=== PATIENT | male | born 1975 | race Caucasian/White ===

== ENCOUNTER 2017-02-21 09:31 | Inpatient (IN) | payer BC ==
[2017-02-21] VITALS (7 sets, daily range): BP systolic 126–143; BP diastolic 65–91; PULSE 68–80; RESP 16–20; TEMP 98.2–98.6; O2SAT 98–100
[~2017-02-21] VITALS: Ht 182.9 cm; Wt 147.5 kg
[~2017-02-21 09:31] MED LIST: GLIP5TAB8 PO; HYDR-3534 PO; IBUP-232 PO; METO25TA3 PO; PRED-503 PO; TRAM50TA PO; URSO1TAB5 PO
--- NOTE | 2017-02-21 10:00 | PD ---
HPI Chief Complaint: Abnormal Results Time Seen by Provider: 09:58 Travel History International Travel<30 days: No Contact w/Intl Traveler<30days: No Traveled to known affect area: No History of Present Illness HPI 41-year-old male came to the emergency room with history of dizziness that started 36 hours ago. Patient says that he first noticed it at 2 AM Sunday when he tried to get out of the bed and got intense nausea sensation. He was unable to walk a straight line was bumping off the manuel. Eventually when he didn't make it to the restroom he had a large bowel movement after which symptoms sort of went away. It came back again yesterday and pretty much stayed the same. He again got nauseous. This morning when he woke up he still had the symptoms when he decided to come to the emergency room. As it feels like the room is spinning. No history of headache or syncopal episodes. Vital signs were relatively stable. Patient has history of diabetes. Patient says this has never happened to him before. No history of tinnitus or hearing loss. Patient says that it seemed like he was leaning to the right side every time he felt like he was going to fall. His bedside blood glucose was 101. PFSH Past Medical History Narrative Medical List of his past medical, surgical, social and family history was reviewed from the nursing note. Asthma: No Cancer: No High Cholesterol: No Chest Pain: Yes (TRIED COCAINE IN 2013 AND CAUSED CP) Congestive Heart Failure: No Diabetes: Yes Endocrine: Yes Gout: Yes Genitourinary: No Hypertension: Yes Immune Disorder: No Musculoskeletal: Yes (gout) Neurologic: No Integumentary: Yes (eczema) Sleep Apnea: Yes (C-PAP MACHINE) Thyroid Disease: No Past Surgical History Abdominal Surgery: No Appendectomy: Yes Cardiac Surgery: No Ear Surgery: No Endocrine Surgery: No Eye Surgery: No Genitourinary Surgery: No Gynecologic Surgery: No Hysterectomy: Yes (HTN) Oral Surgery: No Thoracic Surgery: No Other Surgery: Yes (GALLBLADDER REMOVAL 2002) Social History Alcohol Use: Yes (occasionally) Tobacco Use: No Substance Use: Yes (MJ) Allergies-Medications (Allergen,Severity, Reaction): Coded Allergies: acetaminophen (Unverified Allergy, Intermediate, Hives, 02/21/17) hydrocodone (Unverified Allergy, Intermediate, Hives, 02/21/17) Comments List of his allergies reviewed from the nursing note. Reported Meds & Prescriptions Reported Meds & Active Scripts Active Reported Tramadol (Tramadol HCl) 50 Mg Tab 50 Mg PO Q6H PRN Ursodiol 250 Mg Tab Unknown Dose PO BID Metoprolol Tartrate 25 Mg Tab 25 Mg PO BID Glipizide 5 Mg Tab 5 Mg PO BIDAC Take 30 minutes before a meal Narrative Medication List of his home medications reviewed from the nursing note. Review of Systems Except as stated in HPI: all other systems reviewed are Neg Physical Exam Narrative GENERAL: Awake, alert, morbidly obese, anxious SKIN: Focused skin assessment warm/dry. HEAD: Atraumatic. Normocephalic. EYES: Pupils equal and round. No scleral icterus. No injection or drainage. ENT: No nasal bleeding or discharge. Mucous membranes pink and moist. NECK: Trachea midline. No JVD. CARDIOVASCULAR: Regular rate and rhythm. No murmur appreciated. RESPIRATORY: No accessory muscle use. Clear to auscultation. Breath sounds equal bilaterally. GASTROINTESTINAL: Abdomen soft, non-tender, nondistended. Hepatic and splenic margins not palpable. MUSCULOSKELETAL: No obvious deformities. No clubbing. No cyanosis. No edema. NEUROLOGICAL: Awake and alert. No obvious cranial nerve deficits. Motor grossly within normal limits. Normal speech. Right upper and lower extremity slight ataxia. Diminished sensation on the right side of the face, right upper extremity and right lower extremity. PSYCHIATRIC: Appropriate mood and affect; insight and judgment normal. Data Data Last Documented VS Vital Signs Date Time Temp Pulse Resp B/P (MAP) Pulse Ox O2 Delivery O2 Flow Rate FiO2 02/21/17 11:19 70 16 140/65 (90) 99 Room Air 02/21/17 09:45 98.2 Orders Orders Electrocardiogram (02/21/17 10:19) Prothrombin Time / Inr (Pt) (02/21/17 10:19) Complete Blood Count With Diff (02/21/17 10:19) Comprehensive Metabolic Panel (02/21/17 10:19) Creatine Kinase (Cpk) (02/21/17 10:19) Troponin I (02/21/17 10:19) Urinalysis - C+S If Indicated (02/21/17 10:19) Ct Brain W/O Iv Contrast(Rout) (02/21/17 10:19) Chest, Single Ap (02/21/17 10:19) Ecg Monitoring (02/21/17 10:19) Iv Access Insert/Monitor (02/21/17 10:19) Oximetry (02/21/17 10:19) Sodium Chloride 0.9% Flush (Ns Flush) (02/21/17 10:30) Mra Brain W/O Contrast (Cow) (02/21/17 ) Aspirin (Aspirin) (02/21/17 11:00) Sodium Chlor 0.9% 1000 Ml Inj (Ns 1000 M (02/21/17 11:15) Mri Brain W/O Contrast (02/21/17 ) Consult Neurology (02/21/17 ) Admit Order (Ed Use Only) (02/21/17 12:59) Labs Laboratory Tests Test 02/21/17 10:31 02/21/17 11:12 White Blood Count 9.1 TH/MM3 Red Blood Count 4.32 MIL/MM3 Hemoglobin 12.8 GM/DL Hematocrit 39.0 % Mean Corpuscular Volume 90.2 FL Mean Corpuscular Hemoglobin 29.6 PG Mean Corpuscular Hemoglobin Concent 32.8 % Red Cell Distribution Width 14.3 % Platelet Count 355 TH/MM3 Mean Platelet Volume 8.5 FL Neutrophils (%) (Auto) 75.3 % Lymphocytes (%) (Auto) 16.6 % Monocytes (%) (Auto) 7.3 % Eosinophils (%) (Auto) 0.2 % Basophils (%) (Auto) 0.6 % Neutrophils # (Auto) 6.8 TH/MM3 Lymphocytes # (Auto) 1.5 TH/MM3 Monocytes # (Auto) 0.7 TH/MM3 Eosinophils # (Auto) 0.0 TH/MM3 Basophils # (Auto) 0.1 TH/MM3 CBC Comment DIFF FINAL Differential Comment Prothrombin Time 10.6 SEC Prothromb Time International Ratio 1.0 RATIO Blood Urea Nitrogen 29 MG/DL Creatinine 1.70 MG/DL Random Glucose 102 MG/DL Total Protein 8.2 GM/DL Albumin 3.5 GM/DL Calcium Level 9.0 MG/DL Alkaline Phosphatase 84 U/L Aspartate Amino Transf (AST/SGOT) 44 U/L Alanine Aminotransferase (ALT/SGPT) 56 U/L Total Bilirubin 0.4 MG/DL Sodium Level 137 MEQ/L Potassium Level 3.8 MEQ/L Chloride Level 104 MEQ/L Carbon Dioxide Level 22.1 MEQ/L Anion Gap 11 MEQ/L Estimat Glomerular Filtration Rate 44 ML/MIN Hemoglobin A1c 6.4 % Total Creatine Kinase 94 U/L Troponin I LESS THAN 0.02 NG/ML Urine Collection Type CATH Urine Color YELLOW Urine Turbidity CLEAR Urine pH 5.5 Urine Specific [place] 1.015 Urine Protein NEG mg/dL Urine Glucose (UA) NEG mg/dL Urine Ketones NEG mg/dL Urine Occult Blood NEG Urine Nitrite NEG Urine Bilirubin NEG Urine Leukocyte Esterase NEG Urine WBC 0-2 /hpf Microscopic Urinalysis Comment CULT NOT INDICATED MDM Medical Decision Making Medical Screen Exam Complete: Yes Emergency Medical Condition: Yes Medical Record Reviewed: Yes Interpretation(s) Twelve-lead EKG was reviewed by me. Normal sinus rhythm, normal axis, nonspecific ST-T wave changes. Heart rate of 69 bpm Differential Diagnosis CVA, intracranial tumor, intracranial hemorrhage Narrative Course 12:47 PM blood test results are back and patient has some renal insufficiency. CAT scan was within normal limit. I have ordered an MRI and MRA looking for a stroke. I discussed the case with Dr. Hong who agreed with the MRI/MRA but he wants the patient to be admitted given the symptoms and the risk factor even if the MRI is negative. He will consult on the patient. Patient was given 1 full strength aspirin. Patient has gone over for his MRI and I'm currently waiting for the hospitalist to call back. Procedures EKG Prior to Arrival: No Diagnosis Primary Impression: CVA (cerebral vascular accident) Qualified Codes: I63.9 - Cerebral infarction, unspecified Additional Impression: Dizziness Admitting Information Admitting Physician Requests: Observation Lidia Donnelly MD Feb 21, 2017 10:00
[2017-02-21] MEDS ORDERED: SODIUM CHLORIDE 0.9% FLUSH 10 ML FLUSH IVF PRN (10:30)
[2017-02-21 10:46] LABS: AUTOMATED NEUTROPHIL # 6.8 TH/MM3 (1.8-7.7); BASOPHIL # 0.1 TH/MM3 (0-0.2); BASOPHIL % 0.6 % (0.0-2.0); EOSINOPHIL % 0.2 % (0.0-4.0); HEMO FLAGS DIFF FINAL; LYMPH % 16.6 % (9.0-44.0); LYMPHOCYTE # 1.5 TH/MM3 (1.0-4.8); MEAN CELL VOLUME 90.2 FL (80.0-100.0); MEAN CORPUSCULAR HEMOGLOBIN 29.6 PG (27.0-34.0); MEAN CORPUSCULAR HGB CONC 32.8 % (32.0-36.0); MONO % 7.3 % (0.0-8.0); NEUT % 75.3 % (16.0-70.0); PLATELET COUNT 355 TH/MM3 (150-450); RED BLOOD COUNT 4.32 MIL/MM3 (4.50-5.90); RED CELL DISTRIBUTION WIDTH 14.3 % (11.6-17.2); WHITE BLOOD COUNT 9.1 TH/MM3 (4.0-11.0)
--- NOTE | 2017-02-21 10:54 | RADRPT ---
EXAM DATE/TIME: 02/21/2017 10:46 [facility] COMPARISON: No previous studies available for comparison. INDICATIONS : Dizziness. Evaluate for cerebrovascular accident. RADIATION DOSE: 63.91 CTDIvol (mGy) MEDICAL HISTORY : Hypertension. Diabetes mellitus type 2. SURGICAL HISTORY : CABG Cholecystectomy. ENCOUNTER: Initial ACUITY: 2 days PAIN SCALE: 0/10 LOCATION: cranial TECHNIQUE: Multiple contiguous axial images were obtained of the head. Using automated exposure control and adj ustment of the mA and/or kV according to patient size, radiation dose was kept as low as reasonably a chievable to obtain optimal diagnostic quality images. DICOM format image data is available electro nically for review and comparison. FINDINGS: CEREBRUM: The ventricles are normal for age. No evidence of midline shift, mass lesion, hemorrhage or acute in farction. No extra-axial fluid collections are seen. POSTERIOR FOSSA: The cerebellum and brainstem are intact. The 4th ventricle is midline. The cerebellopontine angle i s unremarkable. EXTRACRANIAL: The visualized portion of the orbits is intact. SKULL: The calvaria is intact. No evidence of skull fracture. CONCLUSION: Negative for an acute process. Efrem Stein MD FACR on February 21, 2017 at 10:52 Board Certified Radiologist. This report was verified electronically.
[2017-02-21 10:55] LABS: CHLORIDE 104 MEQ/L (98-107); POTASSIUM 3.8 MEQ/L (3.5-5.1); SODIUM (NA) 137 MEQ/L (136-145)
[2017-02-21 10:58] LABS: PROTHROMBIN TIME - PATIENT 10.6 SEC (9.8-11.6)
[2017-02-21 10:59] LABS: ANION GAP 11 MEQ/L (5-15); BICARBONATE 22.1 MEQ/L (21.0-32.0); BLOOD UREA NITROGEN 29 MG/DL (7-18)
[2017-02-21] MEDS ORDERED: ASPIRIN 325 MG TAB PO ONE (11:00)
[2017-02-21 11:02] LABS: ALT (GPT) 56 U/L (12-78); AST (GOT) 44 U/L (15-37); GLOMERULAR FILTRATION RATE 44 ML/MIN (>89)
[2017-02-21 11:04] LABS: TOTAL BILIRUBIN ADULT 0.4 MG/DL (0.2-1.0)
[2017-02-21 11:05] LABS: ALKALINE PHOSPHATASE 84 U/L (45-117); CREATINE KINASE 94 U/L (39-308)
[2017-02-21] MEDS ORDERED: SODIUM CHLOR 0.9% 1000 ML INJ 1,000 ML IV ONE (11:15)
[2017-02-21 11:20] LABS: BLOOD, URINE NEG (NEG); GLUCOSE,URINE NEG (NEG); KETONE, URINE NEG (NEG); NITRITE,URINE NEG (NEG); PH, URINE 5.5 (5.0-8.5)
--- NOTE | 2017-02-21 11:21 | RADRPT ---
EXAM DATE/TIME: 02/21/2017 10:51 [facility] COMPARISON: No previous studies available for comparison. INDICATIONS : Chest pain,dizziness, nausea, high white blood cell count on recent lab work. MEDICAL HISTORY : Hypertension. Gout. Sleep apnea. Diabetes. SURGICAL HISTORY : CABG. Appendectomy. Cholecystectomy. ENCOUNTER: Initial ACUITY: 2 days PAIN SCORE: 4/10 LOCATION: chest FINDINGS: A single view of the chest demonstrates the lungs to be symmetrically aerated without evidence of mas s, infiltrate or effusion. The cardiomediastinal contours are unremarkable. Osseous structures are intact. CONCLUSION: No acute disease. Efrem Stein MD FACR on February 21, 2017 at 11:19 Board Certified Radiologist. This report was verified electronically.
[2017-02-21 11:32] LABS: METHOD OF COLLECTION CATH; URINE COLOR YELLOW (YELLW/STRAW)
[2017-02-21 11:33] LABS: COMMENT (UR) CULT NOT INDICATED; CULTURE IF INDICATED CULT NOT INDICATED; WBC, URINE 0-2 /hpf (0-5)
--- NOTE | 2017-02-21 13:31 | RADRPT ---
EXAM DATE/TIME: 02/21/2017 12:44 [facility] COMPARISON: MRI BRAIN W/O CONTRAST, February 21, 2017, 12:44. INDICATIONS : CVA. Dizziness & Nausea MEDICAL HISTORY : Hypertension. Diabetes mellitus type 2. SURGICAL HISTORY : Cholecystectomy. ENCOUNTER: Initial ACUITY: 1 day PAIN SCORE: 0/10 LOCATION: cranial Please note a normal MRA of the brain does not entirely exclude the possibility of a small aneurysm, nor the possibility of distal intracranial vessel disease. TECHNIQUE: 3D time of flight MRA was performed. Source images, multiplanar STS MIP, and 3D volume MIP reconstru ctions were reviewed. FINDINGS: The left A1 and left P1 segments are hypoplastic. There appears to be fairly severe concentric focal stenosis involving the anterior genu region of the cavernous carotid on the right. There is no eviden ce of major vessel occlusion. No aneurysm or vascular malformation is identified. 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 Eric Looney MD on February 21, 2017 at 13:26 Board Certified Radiologist. This report was verified electronically.
--- NOTE | 2017-02-21 13:37 | RADRPT ---
EXAM DATE/TIME: 02/21/2017 12:44 [facility] COMPARISON: No previous studies available for comparison. INDICATIONS : CVA. Unsteady gait. MEDICAL HISTORY : Hypertension. Diabetes mellitus type 2. SURGICAL HISTORY : Cholecystectomy. ENCOUNTER: Initial ACUITY: 2 day PAIN SCORE: 0/10 LOCATION: head TECHNIQUE: Multiplanar, multisequence MRI of the brain was performed without contrast. FINDINGS: CEREBRUM: The ventricles are normal for age. No evidence of midline shift, mass lesion, hemorrhage or acute in farction. No extraaxial fluid collections are seen. The pituitary gland and suprasellar cistern are normal in configuration. WHITE MATTER: No significant signal abnormalities are seen in the white matter. POSTERIOR FOSSA: The cerebellum and brainstem are intact. The 4th ventricle is midline. The cerebellopontine angle is unremarkable. The cerebellar tonsils are normal in position. DIFFUSION IMAGING: No focal areas of restricted diffusion are seen. No evidence of acute infarction. EXTRACRANIAL: The visualized portions of the orbits and paranasal sinuses are unremarkable. CONCLUSION: Normal examination. Eric Looney MD on February 21, 2017 at 13:34 Board Certified Radiologist. This report was verified electronically.
[2017-02-21] MEDS ORDERED: SENNOSIDES 8.6 MG TAB PO PRN (14:30)
[2017-02-21] MEDS ORDERED: MAGNESIUM HYDROXIDE SUSP 30 ML CUP PO PRN (14:30)
[2017-02-21] MEDS ORDERED: BISACODYL 10 MG SUPP RECTAL PRN (14:30)
[2017-02-21] MEDS ORDERED: NALOXONE HCL 0.4 MG/ML AMP IV PRN (14:30)
[2017-02-21] MEDS ORDERED: SODIUM CHLORIDE 0.9% FLUSH 10 ML FLUSH IV FLUSH PRN (14:30)
[2017-02-21] MEDS ORDERED: LACTULOSE SYRUP 20 GM/30 ML CUP PO PRN (14:30)
[2017-02-21] MEDS ORDERED: DEXTROSE 50% IN WATER 50 ML VIAL(D50) IV PRN (15:15)
[2017-02-21] MEDS ORDERED: GLUCAGON 1 MG/ML VIAL OTHER PRN ×2 (15:15→20:30)
--- NOTE | 2017-02-21 15:40 | HHI.HP ---
[facility] No Primary Care Physician Admission Diagnosis dizziness, CVA Diagnoses: (1) Dizziness Diagnosis: Principal Chief Complaint: Nauseous and dizzy Travel History International Travel<30 Days: No Contact w/Intl Traveler <30 Da: No Traveled to Known Affected Are: No History of Present Illness Written by Daryn Gaytan, acting as scribe for Dr. Apple on 02/21/17 at 15: 39. 41-year-old male with known history of hypertension, hyperlipidemia, diabetes, gout presented to hospital because of nausea and dizziness. Patient states that his symptoms started 3 days ago when he woke up Sunday morning at 2:30 AM really nauseous but he did not vomit. He states again on Sunday early a.m. he did the same thing. Then this morning at 8 AM when he got out of bed he was nauseous but did not vomit. When he got out of bed he got lightheaded and dizzy and he stumbled and ran into the door on the left and then he went to go to the restroom and he staggered to the right eye couple times and then fell onto the toilet. The patient states that he has two-year history of blurred vision, he has had headaches but that was last week on Sunday and Sunday. However he has not had any cephalgia since then. Eyes any paresthesia numbness, strength changes. He describes the dizziness as the room spinning. He did have a bowel movement today which was diarrhea. Patient indicates that his primary medical doctor is located in [facility]. He had labwork done 2 weeks ago and he was called and notified that he had an elevated white count, decreased vitamin D level and elevated cholesterol level. 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 Patient indicates that he has had 2 previous admissions within the last year 1 was because of elevated white blood cell count back in January 08, 2016 and another one in April because of elevated white count and gout. Is indicated by ER documentation the patient was referred here because of abnormal laboratory studies which would include elevated WBC count, however his laboratory studies were normal here. Patient did have workup done emergency department to include CT scan of the head because of the dizziness which was normal. Emergency room physician did contact neurologist who recommended MRI/ MRA of the brain for further evaluation which was also negative. Patient was adequately recommended admission for further neurological evaluation and management. Review of Systems Constitutional: COMPLAINS OF: Dizziness Gastrointestinal: COMPLAINS OF: Nausea Except as stated in HPI: all other systems reviewed are Neg Past Family Social History Past Medical History Hypertension Hyperlipidemia Diabetes Gout Obstructive sleep apnea Past Surgical History Cholecystectomy Reported Medications Benicar HCT 40/25 one tablet daily Carvedilol 25 mg daily Allopurinol 300 mg daily Metformin 500 mg daily Allergies: Coded Allergies: acetaminophen (Unverified Allergy, Intermediate, Hives, 02/21/17) hydrocodone (Unverified Allergy, Intermediate, Hives, 02/21/17) Family History Reviewed is significant for mother is alive with arthritis and significant family history of diabetes. Father at age 71 from end-stage kidney disease, father with hypertension, diabetes Social History That patient denies any tobacco use. Does smoke marijuana occasionally. Does drink alcohol occasionally Physical Exam Vital Signs Vital Signs Date Time Temp Pulse Resp B/P (MAP) Pulse Ox O2 Delivery O2 Flow Rate FiO2 02/21/17 15:00 98.5 68 20 143/81 (101) 99 02/21/17 14:59 02/21/17 13:32 99 Room Air 02/21/17 13:32 70 16 140/90 (107) 100 Room Air 02/21/17 11:19 70 16 140/65 (90) 99 Room Air 02/21/17 11:19 98 Room Air 02/21/17 10:43 100 Room Air 02/21/17 10:10 16 99 Room Air 02/21/17 09:45 98.2 69 16 126/74 (91) 99 Physical Exam GENERAL: Well-developed, well-nourished, in no acute distress. alert and orientated HEENT: Head is normocephalic without any lesions or masses noted. Facial features are symmetric. Eyes: Pupils equal round reactive to light. Extraocular muscles are intact. Conjunctivae were clear. Oropharyngeal: Pharynx without any erythema edema. Tongue is midline without deviation. Buccal mucosa is moist without any masses or lesions NECK: Supple without any masses. Trachea midline no deviation. No JVD, no bruits are appreciated CARDIAC: Regular rhythm, regular rate. S1/S2 are heard. No murmurs gallops or rubs. LUNGS: Clear to auscultation bilaterally. No wheeze, rhonchi or rales. No use of accessory muscles on inspiration or expiration. ABDOMEN: Soft, nontender. Nondistended. Bowel sounds heard in all 4 quadrants. No organomegaly or masses. Negative rebound, negative guarding EXTREMITIES: No edema, pulses are equal bilaterally. No cyanosis or clubbing NEUROLOGY: Mood and affect appear appropriate. Cranial nerves II through XII grossly intact. Muscle strength 5/5 in upper and lower extremities bilaterally. Deep tendon reflexes are 2+ in upper and lower extremities bilaterally. When patient turns his head to the left he gets dizzy Laboratory Laboratory Tests Test 02/21/17 10:31 02/21/17 11:12 White Blood Count 9.1 Red Blood Count 4.32 Hemoglobin 12.8 Hematocrit 39.0 Mean Corpuscular Volume 90.2 Mean Corpuscular Hemoglobin 29.6 Mean Corpuscular Hemoglobin Concent 32.8 Red Cell Distribution Width 14.3 Platelet Count 355 Mean Platelet Volume 8.5 Neutrophils (%) (Auto) 75.3 Lymphocytes (%) (Auto) 16.6 Monocytes (%) (Auto) 7.3 Eosinophils (%) (Auto) 0.2 Basophils (%) (Auto) 0.6 Neutrophils # (Auto) 6.8 Lymphocytes # (Auto) 1.5 Monocytes # (Auto) 0.7 Eosinophils # (Auto) 0.0 Basophils # (Auto) 0.1 CBC Comment DIFF FINAL Differential Comment Prothrombin Time 10.6 Prothromb Time International Ratio 1.0 Blood Urea Nitrogen 29 Creatinine 1.70 Random Glucose 102 Total Protein 8.2 Albumin 3.5 Calcium Level 9.0 Alkaline Phosphatase 84 Aspartate Amino Transf (AST/SGOT) 44 Alanine Aminotransferase (ALT/SGPT) 56 Total Bilirubin 0.4 Sodium Level 137 Potassium Level 3.8 Chloride Level 104 Carbon Dioxide Level 22.1 Anion Gap 11 Estimat Glomerular Filtration Rate 44 Total Creatine Kinase 94 Troponin I LESS THAN 0.02 Urine Collection Type CATH Urine Color YELLOW Urine Turbidity CLEAR Urine pH 5.5 Urine Specific [place] 1.015 Urine Protein NEG Urine Glucose (UA) NEG Urine Ketones NEG Urine Occult Blood NEG Urine Nitrite NEG Urine Bilirubin NEG Urine Leukocyte Esterase NEG Urine WBC 0-2 Microscopic Urinalysis Comment CULT NOT INDICATED Result Diagram: 02/21/17 1031 02/21/17 1031 Imaging Last Impressions Head CT 02/21/17 1019 Signed Impressions: Service Date/Time: Tuesday, February 21, 2017 10:46 - CONCLUSION: Negative for an acute process. Efrem Stein MD FACR Chest X-Ray 02/21/17 1019 Signed Impressions: Service Date/Time: Tuesday, February 21, 2017 10:51 - CONCLUSION: No acute disease. 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 Eric Looney MD Brain MRI 02/21/17 0000 Signed Impressions: Service Date/Time: Tuesday, February 21, 2017 12:44 - CONCLUSION: Normal examination. Eric Looney MD Caprini VTE Risk Assessment Caprini VTE Risk Assessment: Mod/High Risk (score >= 2) Caprini Risk Assessment Model Point Value = 1 Point Value = 2 Point Value = 3 Point Value = 5 Age 41-60 Minor surgery BMI > 25 kg/m2 Swollen legs Varicose veins or History of unexplained or recurrent spontaneous Oral contraceptives or hormone replacement Sepsis (< 1 month) Serious lung disease, including pneumonia (< 1 month) Abnormal pulmonary function Acute myocardial infarction Congestive heart failure (< 1 month) History of inflammatory bowel disease Medical patient at bed rest Age 61-74 Arthroscopic surgery Major open surgery (> 45 min) Laparoscopic surgery (> 45 min) Malignancy Confined to bed (> 72 hours) Immobilizing plaster cast Central venous access Age >= 75 History of VTE Family history of VTE Factor V Leiden Prothrombin [id number] Lupus anticoagulant Anticardiolipin antibodies Elevated serum homocysteine Heparin-induced thrombocytopenia Other congenital or acquired thrombophilia Stroke (< 1 month) Elective arthroplasty Hip, pelvis, or leg fracture Acute spinal cord injury (< 1 month) Prophylaxis Regimen Total Risk Factor Score Risk Level Prophylaxis Regimen 0-1 Low Early ambulation 2 Moderate Order ONE of the following: *Sequential Compression Device (SCD) *Heparin 5000 units SQ BID 3-4 Higher Order ONE of the following medications: *Heparin 5000 units SQ TID *Enoxaparin/Lovenox 40 mg SQ daily (WT < 150 kg, CrCl > 30 mL/min) *Enoxaparin/Lovenox 30 mg SQ daily (WT < 150 kg, CrCl > 10-29 mL/min) *Enoxaparin/Lovenox 30 mg SQ BID (WT < 150 kg, CrCl > 30 mL/min) AND/OR *Sequential Compression Device (SCD) 5 or more Highest Order ONE of the following medications: *Heparin 5000 units SQ TID (Preferred with Epidurals) *Enoxaparin/Lovenox 40 mg SQ daily (WT < 150 kg, CrCl > 30 mL/min) *Enoxaparin/Lovenox 30 mg SQ daily (WT < 150 kg, CrCl > 10-29 mL/min) *Enoxaparin/Lovenox 30 mg SQ BID (WT < 150 kg, CrCl > 30 mL/min) AND *Sequential Compression Device (SCD) Assessment and Plan Problem List: (1) Dizziness ICD Code: R42 - Dizziness and giddiness Status: Acute Plan: 41-year-old male who presented to hospital because three-day history of nausea and dizziness. Likely this is related to postural vertigo -CT scan was done of the head which did not indicate any acute abnormality -MRI of the brain was performed which did not indicate any acute abnormality -MRA of the brain show significant cavernous carotid stenosis on the right -Carotid ultrasound, echocardiogram has been requested -Cardiology consulted for recommendations -Physical therapy consulted for evaluation and Yo maneuver -Patient was given aspirin 325 mg in the emergency department -Neurology consulted for recommendations (2) Hypertension ICD Code: I10 - Essential (primary) hypertension Plan: Will resume patient's home medications when appropriate (3) Diabetes ICD Code: E11.9 - Type 2 diabetes mellitus without complications Plan: Accu-Cheks with sliding scale insulin Assessment and Plan DVT prevention -Subcutaneous Lovenox Physician Certification 2 Midnight Certification Type: Admission for Inpatient Services Order for Inpatient Services The services are ordered in accordance with Medicare regulations or non- Medicare payer requirements, as applicable. In the case of services not specified as inpatient-only, they are appropriately provided as inpatient services in accordance with the 2-midnight benchmark. Estimated LOS (days): 2 days is the estimated time the patient will need to remain in the hospital, assuming treatment plan goals are met and no additional complications. Post-Hospital Plan: Not yet determined Medical Decision Making Impression and Plan This note was transcribed by chetna spivey I, Dr. Mary Apple personally performed the history, physical exam, and medical decision making; and confirmed the accuracy of the information in the transcribed note. Authenticated by Dr. Mary Apple on 02/21/17 at 15:40. Medical Decision Making Impression and Plan This note was transcribed by chetna spivey I, Dr. Mary Apple personally performed the history, physical exam, and medical decision making; and confirmed the accuracy of the information in the transcribed note. This patient's symptoms are most consistent with positional vertigo. We'll follow up carotid ultrasound and discuss with neurology Continue evaluation as above. We'll follow renal function in a.m. Authenticated by Dr. Mary Apple on 02/21/17 at 15:40. Daryn Gaytan Feb 21, 2017 15:40 Mary Apple MD Feb 21, 2017 15:40
[2017-02-21] MEDS ORDERED: SODIUM CHLOR 0.9% 1000 ML INJ 1,000 ML IV SCH ×2 (15:45→20:29)
--- NOTE | 2017-02-21 15:59 | RADRPT ---
EXAM DATE/TIME: 02/21/2017 14:58 [place] COMPARISON: No previous studies available for comparison. INDICATIONS : Cerebrovascular accident. MEDICAL HISTORY : Hypertension. Diabetes. Gout. SURGICAL HISTORY : CABG. Appendectomy. Cholecystectomy. ENCOUNTER: Initial ACUITY: 1 day PAIN SCORE: 0/10 LOCATION: Bilateral neck PEAK SYSTOLIC VELOCITIES (cm/sec): ICA/CCA RATIO: Right: 0.9 Left: 0.7 ICA: Right: 100 Left: 84 CCA: Right: 110 Left: 124 ECA: Right: 118 Left: 73 VERTEBRAL: Right: 52 antegrade Left: 73 antegrade Elevated flow velocities and ICA/CCA ratios have been found to correlate with increased degrees of vessel stenosis, calculated as percentage of diameter relative to a normal segment of distal ICA/CCA FINDINGS: RIGHT CAROTID: There is no evidence for a hemodynamically significant carotid stenosis. Minimal int imal hyperplasia is present with scattered calcific plaque. LEFT CAROTID: There is no evidence for a hemodynamically significant carotid stenosis. Minimal inti mal hyperplasia is present with scattered calcific plaque. VERTEBRAL ARTERIES: Flow is antegrade in both vertebral arteries. MISCELLANEOUS: There are no ancillary masses or adenopathy. CONCLUSION: Negative examination for a hemodynamically significant carotid stenosis. Efrem Stein MD FACR Board Certified Radiologist. This report was verified electronically.
[2017-02-21] MEDS ORDERED: glipiZIDE 5 MG TAB PO SCH (16:00)
[2017-02-21] MEDS: ENOXAPARIN SODIUM 40 MG/0.4 ML SYRINGE SQ SCH (17:12)
[2017-02-21] MEDS: ASPIRIN EC 325 MG TABEC PO SCH (20:30)
[2017-02-21] MEDS ORDERED: DEXTROSE 50% IN WATER 50 ML VIAL(D50) IV PUSH PRN (20:30)
[2017-02-21] MEDS: CLOPIDOGREL 75 MG TAB PO SCH (20:30)
[2017-02-21] MEDS ORDERED: SODIUM CHLORIDE 0.9% FLUSH 5 ML FLUSH IV FLUSH PRN (20:30)
[2017-02-21] MEDS: SODIUM CHLORIDE 0.9% FLUSH 5 ML FLUSH IV FLUSH SCH (21:00)
[2017-02-21] MEDS: INSULIN ASPART SUPPLEMENTAL SCALE SQ SCH (21:00)
[2017-02-21] MEDS: DOCUSATE SODIUM 50 MG/SENNA 8.6 MG TAB PO SCH (21:00)
[2017-02-21] MEDS ORDERED: SODIUM CHLORIDE 0.9% FLUSH 10 ML FLUSH IV FLUSH SCH (21:00)
[2017-02-22] VITALS (9 sets, daily range): BP systolic 123–165; BP diastolic 59–89; PULSE 71–88; RESP 18–20; TEMP 97–98.7; O2SAT 94–98
[2017-02-22 06:39] LABS: POTASSIUM 3.8 MEQ/L (3.5-5.1)
[2017-02-22 06:46] LABS: BICARBONATE 26.6 MEQ/L (21.0-32.0)
[2017-02-22] MEDS: INSULIN ASPART SUPPLEMENTAL SCALE SQ SCH ×4 (06:52→20:31)
--- NOTE | 2017-02-22 07:34 | MB ---
cc: DOTTY GARZA M.D. DATE OF CONSULTATION 02/21/2017 REASON FOR CONSULTATION Possible TIA, vertigo. HISTORY OF PRESENT ILLNESS Mr. Gilbert is a very nice 41-year-old man who since early Sunday morning has been having episodes of vertigo and unsteadiness. This can come and go intermittently. It was not necessarily associated with positio or change in position. Today he had a recurrent episode and came to the ER. He noted difficulty controlling the right arm and right leg. No speech change. He is much better at the present time. He had some headaches as well over the past few days which is somewhat atypical. PAST MEDICAL HISTORY 1. He has got a history of gout. 2. History of appendectomy. 3. Hypertension 4. Sleep apnea using the C-PAP machine. 5. History of eczema. 6. Diabetes MEDICATIONS AT HOME He takes: 1. Aspirin two 81 mg daily 2. Tramadol 3. Ursodiol 4. Metoprolol 5. Glipizide. ALLERGIES ACETAMINOPHEN, HYDROCODONE NEUROLOGIC EXAMINATION VITAL SIGNS: Blood pressure 143/81, pulse is 68, temperature 98.5 degrees. Higher cortical functions normal. Cranial nerves are intact. The extraocular movements are normal. There is no nystagmus. The pupils are equal and reactive. On motor examination, he has 5/5 strength of all groups in both upper and lower extremities. He does [id number] well. There is no dysmetria. He can do [id number] testing well bilaterally. No ataxia. Reflexes are symmetric. MRI of the brain is normal. MRA of the brain shows significant cavernous carotid stenosis on the right side. A carotid ultrasound is normal. CT brain normal. LABORATORY DATA White count is 9100, hemoglobin 12.8, hematocrit 39% platelets. 355,000, PT 10.6, INR 1. Sodium is 137, potassium 3.8, chloride 104, CO2 22.1, the BUN is 29, creatinine 1.7, GFR is 44, AST 44, ALT is 56. IMPRESSION I believe this was most likely a cerebellar TIA which is now resolved. The concern is the dysmetria and ataxia he had on the right side which would indicate more of a TIA as opposed to positional vertigo. He does have evidence of atherosclerotic disease intracranially on the MRA and does have risk factors including diabetes. RECOMMENDATIONS Start Plavix 75 mg daily. Stop the aspirin in three to five days, check an echocardiogram. We will monitor cardiac telemetry to rule out A. Fib. Because of his relative young age, consider NATHANIEL and also recommend evaluation for hypercoagulable state. We will check a lipid panel as well. MD BOB Julian/SHAKA /8:25 PM /7:25 AM
[2017-02-22] MEDS: SODIUM CHLORIDE 0.9% FLUSH 5 ML FLUSH IV FLUSH SCH ×4 (09:00→20:37)
[2017-02-22] MEDS: DOCUSATE SODIUM 50 MG/SENNA 8.6 MG TAB PO SCH ×2 (09:00→20:29)
[2017-02-22] MEDS: CLOPIDOGREL 75 MG TAB PO SCH (09:41)
[2017-02-22] MEDS: CARVEDILOL 12.5 MG TAB PO SCH (09:41)
[2017-02-22] MEDS: ASPIRIN EC 325 MG TABEC PO SCH (09:41)
--- NOTE | 2017-02-22 10:01 | HHI.PR ---
Subjective Remarks Patient seen and evaluated today in follow-up for dizziness. NATHANIEL planned her neuro/cardiology. Patient reports improvement in symptoms today Objective Vitals Vital Signs Date Time Temp Pulse Resp B/P (MAP) Pulse Ox O2 Delivery O2 Flow Rate FiO2 02/22/17 08:00 97.0 71 20 123/81 (95) 98 02/22/17 04:00 97.0 74 20 136/84 (101) 97 02/22/17 00:00 98.0 88 20 140/89 (106) 98 02/21/17 22:31 98 21 02/21/17 20:00 98.6 80 20 143/91 (108) 98 02/21/17 15:00 98.5 68 20 143/81 (101) 99 02/21/17 14:59 02/21/17 13:32 99 Room Air 02/21/17 13:32 70 16 140/90 (107) 100 Room Air 02/21/17 11:19 70 16 140/65 (90) 99 Room Air 02/21/17 11:19 98 Room Air 02/21/17 10:43 100 Room Air 02/21/17 10:10 16 99 Room Air I/O 02/21/17 02/21/17 02/21/17 02/22/17 02/22/17 02/22/17 07:00 15:00 23:00 07:00 15:00 23:00 Intake Total 1000 ml 980 ml 720 ml Balance 1000 ml 980 ml 720 ml Intake Oral 780 ml 720 ml IV Total 1000 ml 200 ml # Voids 4 3 # Bowel Movements 1 0 Result Diagram: 02/21/17 1031 02/22/17 0535 Imaging Last Impressions Head CT 02/21/17 1019 Signed Impressions: Service Date/Time: Tuesday, February 21, 2017 10:46 - CONCLUSION: Negative for an acute process. Efrem Stein MD FACR Chest X-Ray 02/21/17 1019 Signed Impressions: Service Date/Time: Tuesday, February 21, 2017 10:51 - CONCLUSION: No acute disease. 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 Eric Looney MD Carotid Artery Ultrasound 02/21/17 0000 Signed Impressions: Service Date/Time: Tuesday, February 21, 2017 14:58 - CONCLUSION: Negative examination for a hemodynamically significant carotid stenosis. Efrem Stein MD Brain MRI 02/21/17 0000 Signed Impressions: Service Date/Time: Tuesday, February 21, 2017 12:44 - CONCLUSION: Normal examination. Eric Looney MD Objective Remarks Morbidly obese GENERAL: This is a well-nourished, well-developed patient, in no apparent distress. CARDIOVASCULAR: Regular rate and rhythm without murmurs, gallops, or rubs. RESPIRATORY: Clear to auscultation. Breath sounds equal bilaterally. No wheezes , rales, or rhonchi. GASTROINTESTINAL: Abdomen soft, non-tender, nondistended. Normal active bowel sounds MUSCULOSKELETAL: Extremities without clubbing, cyanosis, or edema. NEURO: Alert & Oriented x4 to person, place, time, situation. Moves all ext x4 A/P Problem List: (1) Dizziness ICD Code: R42 - Dizziness and giddiness Status: Acute Plan: Rule out cerebellar TIA with dysmetria and ataxia versus vertigo Workup in progress Neurological consult appreciated TTE and NATHANIEL pending Transferred to [facility] for NATHANIEL Plavix, aspirin Lifestyle adjustment for weight loss and continue treatment for diabetes and hypertension High intensity statin (2) Hypertension ICD Code: I10 - Essential (primary) hypertension Plan: Coreg (3) Diabetes ICD Code: E11.9 - Type 2 diabetes mellitus without complications Plan: Accu-Cheks with sliding scale insulin Home metformin held (4) CAMILLE (acute kidney injury) ICD Code: N17.9 - Acute kidney failure, unspecified Plan: Improved after IV hydration Continue glucose control and follow May need JONATHAN inhibitor Discharge Planning Pending NATHANIEL/Echo Transferred to [facility] hospital Mary Apple MD Feb 22, 2017 10:01
[2017-02-22] MEDS: ENOXAPARIN SODIUM 40 MG/0.4 ML SYRINGE SQ SCH (16:00)
--- NOTE | 2017-02-22 16:20 | ECHRPT ---
Indication: HTN H Disease CONCLUSIONS Normal left ventricular size. Mild concentric left ventricular hypertrophy. The left ventricular systolic function is low normal with an estimated ejection fraction in the rang e of 50- 55%. Ljnwz-mg-vsdg mitral valve regurgitation. No mitral valve stenosis. BP: / HR: Rhythm: MEASUREMENTS (Male / Female) Normal Values Technical Quality:Good 2D ECHO LV Diastolic Diameter PLAX 4.0 cm 4.2 - 5.9 / 3.9 - 5.3 cm LV Systolic Diameter PLAX 2.9 cm IVS Diastolic Thickness 1.3 cm 0.6 - 1.0 / 0.6 - 0.9 cm LVPW Diastolic Thickness 1.1 cm 0.6 - 1.0 / 0.6 - 0.9 cm LV Relative Wall Thickness 0.6 RV Internal Dim ED PLAX 3.9 cm M-MODE Aortic Root Diameter MM 3.1 cm LA Systolic Diameter MM 5.4 cm LA Ao Ratio MM 1.7 AV Cusp Separation MM 1.9 cm DOPPLER Mitral E Point Velocity 71.1 cm/s Mitral A Point Velocity 79.5 cm/s Mitral E to A Ratio 0.9 LV E' Lateral Velocity 9.8 cm/s Mitral E to LV E' Lateral Ratio 7.2 LV E' Septal Velocity 9.6 cm/s Mitral E to LV E' Septal Ratio 7.4 TR Peak Velocity 255.0 cm/s TR Peak Gradient 26.0 mmHg FINDINGS LEFT VENTRICLE Normal left ventricular size. Mild concentric left ventricular hypertrophy. The left ventricular systolic function is low normal with an estimated ejection fraction in the rang e of 50- 55%. RIGHT VENTRICLE Normal right ventricular size and systolic function. LEFT ATRIUM The left atrial size is normal. RIGHT ATRIUM The right atrial size is normal. ATRIAL SEPTUM Normal atrial septal thickness without atrial level shunting by limited color doppler interrogation. AORTA The aortic root and proximal ascending aorta are normal in size on limited imaging. MITRAL VALVE Structurally normal mitral valve. Ojtvb-iu-leho mitral valve regurgitation. No mitral valve stenosis. AORTIC VALVE Trileaflet aortic valve. No aortic valve stenosis or regurgitation. TRICUSPID VALVE Structurally normal tricuspid valve. The estimated pulmonary arterial pressure is36 __ mmHg. PULMONARY VALVE The pulmonary valve is not well visualized. VESSELS The inferior vena cava is normal in size. PERICARDIUM No pericardial effusion. Wilbert Guadalupe MD, FACC (Electronically Signed) Final Date:22 February 2017 16:19
[2017-02-22 17:03] LABS: HEMOGLOBIN A1a 0.9 %; HEMOGLOBIN A1b 1.2 %; HEMOGLOBIN Ao 85.2 %; HEMOGLOBIN F 0.8 %; HEMOGLOBIN LA1C 1.3 %; HEMOGLOBIN P3 3.5 %
--- NOTE | 2017-02-22 17:40 | EKG ---
Date Performed: 02/21/2017 Time Performed: 10:24:38 PTAGE: 41 years EKG: Sinus rhythm NORMAL ECG NO PREVIOUS TRACING DOCTOR: Crispin Magdaleno Interpretating Date/Time 02/22/2017 17:36:28
[2017-02-22] MEDS ORDERED: ATORVASTATIN 40 MG TAB PO SCH (21:00)
[2017-02-22] MEDS ORDERED: ATORVASTATIN 80 MG TAB PO SCH (21:00)
[2017-02-23 05:55] VITALS: BP 148/78; PULSE 72; RESP 16; TEMP 98.6; O2SAT 97
[2017-02-23] MEDS: INSULIN ASPART SUPPLEMENTAL SCALE SQ SCH ×2 (07:00→11:00)
[2017-02-23] MEDS: CARVEDILOL 12.5 MG TAB PO SCH (08:29)
[2017-02-23] MEDS: ASPIRIN EC 325 MG TABEC PO SCH (08:29)
[2017-02-23] MEDS: DOCUSATE SODIUM 50 MG/SENNA 8.6 MG TAB PO SCH (08:30)
[2017-02-23] MEDS: CLOPIDOGREL 75 MG TAB PO SCH (08:30)
[2017-02-23] MEDS: SODIUM CHLORIDE 0.9% FLUSH 5 ML FLUSH IV FLUSH SCH (09:00)
[2017-02-23 10:30] VITALS: BP 130/76; PULSE 72; RESP 16; TEMP 98.6; O2SAT 97
--- NOTE | 2017-02-23 10:44 | HHI.PR ---
Subjective Remarks Follow up TIA. Patient scheduled for NATHANIEL today. No complaints at this time. Symptoms have resolved. Denies numbness/tingling/weakness. No chest pain, dyspnea. Objective Vitals Vital Signs Date Time Temp Pulse Resp B/P (MAP) Pulse Ox O2 Delivery O2 Flow Rate FiO2 02/23/17 05:55 98.6 72 16 148/78 (101) 97 02/22/17 22:50 98.7 78 18 165/59 (94) 97 02/22/17 19:50 98 21 02/22/17 16:00 98.1 73 20 159/76 (103) 97 02/22/17 15:30 98 21 02/22/17 12:00 98.1 71 20 137/74 (95) 94 I/O 02/22/17 02/22/17 02/22/17 02/23/17 02/23/17 02/23/17 07:00 15:00 23:00 07:00 15:00 23:00 Intake Total 720 ml 1430 ml 300 ml 0 ml Balance 720 ml 1430 ml 300 ml 0 ml Intake Oral 720 ml 1150 ml 300 ml 0 ml IV Total 280 ml # Voids 3 6 1 2 # Bowel Movements 0 0 Result Diagram: 02/21/17 1031 02/22/17 0535 Imaging Last Impressions Head CT 02/21/17 1019 Signed Impressions: Service Date/Time: Tuesday, February 21, 2017 10:46 - CONCLUSION: Negative for an acute process. Efrem Stein MD FACR Chest X-Ray 02/21/17 1019 Signed Impressions: Service Date/Time: Tuesday, February 21, 2017 10:51 - CONCLUSION: No acute disease. 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 Eric Looney MD Carotid Artery Ultrasound 02/21/17 0000 Signed Impressions: Service Date/Time: Tuesday, February 21, 2017 14:58 - CONCLUSION: Negative examination for a hemodynamically significant carotid stenosis. Efrem Stein MD Brain MRI 02/21/17 0000 Signed Impressions: Service Date/Time: Wednesday, February 21, 2017 12:44 - CONCLUSION: Normal examination. Eric Looney MD Objective Remarks General: Morbidly obese male in no acute distress. Heart: Regular rate and rhythm. No murmur. Lungs: Clear to auscultation bilaterally. No wheezes, rales, or rhonchi. Breathing is nonlabored. Abdomen: Soft, nontender, nondistended. Extremities: No lower extremity edema. Psych: Alert and oriented. Procedures None Urinary Catheter: No Vascular Central Line Catheter: No A/P Problem List: (1) Dizziness ICD Code: R42 - Dizziness and giddiness Status: Acute (2) Hypertension ICD Code: I10 - Essential (primary) hypertension (3) Diabetes ICD Code: E11.9 - Type 2 diabetes mellitus without complications (4) CAMILLE (acute kidney injury) ICD Code: N17.9 - Acute kidney failure, unspecified Assessment and Plan 1. Dizziness: Likely TIA. Symptoms have resolved. Appreciate neurology recommendations. NATHANIEL to be done today. 2. Hypertension: Continue Coreg. 3. Diabetes mellitus: Monitor Accu-Cheks and cover with sliding scale insulin. Metformin on hold. 4. Acute kidney injury: Improved after IV fluid hydration. 5. DVT prophylaxis: Lovenox. Discharge Planning Pending NATHANIEL. Daryn Mendoza MD Feb 23, 2017 10:43
[2017-02-25 03:49] LABS: THROMBIN TIME FOR LA ND sec (13-19)
== END 2017-02-23 12:20 | disposition left against medical advice (07) | DRG 69 ==
LOC: PHED 09:31 → PHEDA 13:00 → PH3A 14:44 → HCIS 02-22 09:37 → PH3A 02-22 10:29 → HCIS 02-22 22:49
PROVIDERS: ADMIT Family Medicine; ATTEND Family Medicine
DX: G45.9 Transient cerebral ischemic attack, unspecified (principal); N17.9 Acute kidney failure, unspecified; Z68.41 Body mass index [BMI] 40.0-44.9, adult; I10 Essential (primary) hypertension; E11.9 Type 2 diabetes mellitus without complications; E78.5 Hyperlipidemia, unspecified; M10.9 Gout, unspecified; G47.33 Obstructive sleep apnea (adult) (pediatric); L30.9 Dermatitis, unspecified; E66.01 Morbid (severe) obesity due to excess calories; Z79.84 Long term (current) use of oral hypoglycemic drugs
CPT/HCPCS: 70450; 70544; 70551; 71010; 80048; 80053; 80061; 81001; 81240; 81241; 82550; 82948; 83036; 84484; 85025; 85303; 85306; 85610; 85613; 85730; 86147; 86592; 93005; 93306; 93880; 96360; 96361; J1650; J7030